=== PATIENT | male | born 1970 | race Caucasian/White ===

== ENCOUNTER 2023-05-21 10:18 | Observation (INO) | payer OTHER ==
--- OUTSIDE RECORDS SUMMARY | 2023-05-21 10:21 | XMS REPORT | Continuity of Care Document ---
:1970 Author Organization [facility] t Address [address] [facility]. [address] [place] [address] Care Team Providers Name Role Phone Unavailable Unavailable Unavailable Problems This patient has no known problems. Allergies, Adverse Reactions, Alerts This patient has no known allergies or adverse reactions. Medications This patient has no known medications. Procedures This patient has no known procedures. Encounters Start End Encounter Admission Attending Care Care Encounter Source Date/Time Date/Time Type Type Clinicians Facility Department ID 2023-02-24 2023-02-24 Outpatient [facility] [id number] 14:22:23 14:22:23 [id number] F Vickey 2023-01-29 2023-01-29 Outpatient [facility] [id number] 13:37:17 13:37:17 [id number] F Vickey 2023-01-27 2023-01-27 Outpatient [facility] [id number] [place] 13:33:18 13:33:18 [id number] F Vickey Results This patient has no known results.
[2023-05-21 11:51] LABS: Absolute Lymphocytes (CBC) 0.6 K/uL (0.7-4.9); Hematocrit 38.5 % (39.6-49.0); Lymphocytes % 7.1 % (15.3-44.8); MCV 94.8 fL (80-100); MPV 7.9 fL (7.6-11.3); RBC Red Blood Cell Count 4.06 M/uL (4.33-5.43)
[2023-05-21] MEDS ORDERED: Ringers Lactate 1,000 ML IV ONE (11:51)
[2023-05-21] MEDS ORDERED: FOLIC ACID 1 MG, THIAMINE HCL 100 MG, MULTIVITAMINS INJ 10 ML in NA CHLORIDE 0.9% 1,000 ML IV ONE (12:00)
[2023-05-21 12:14] LABS: Albumin 4.8 g/dL (3.4-5.0); Potassium 3.2 mEq/L (3.5-5.1); Protein, Total 8.6 g/dL (6.4-8.2)
--- NOTE | 2023-05-21 13:11 | EDPHYS ---
Physician Documentation [facility] Name: Darrin Wright Age: 53 yrs Sex: Male : 1970 Arrival Date: 05/21/2023 Time: 10:18 Bed 12 Private MD: ED Physician Rafael Dhillon HPI: 05/21 14:29 This 53 yrs old Male presents to ER via Ambulatory with complaints of Dizziness, kdr Headache. 14:29 Patient presents with intermittent syncope, weakness and generally not feeling well. kdr This is been ongoing but seemingly worsening over the last several months. Patient states that he is very lightheaded and dizzy when he stands up. Patient states that he has been under a lot of stress and has been drinking 8 - 16 ounce beers in the evenings. Last night he only had 2 beers. 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 Last few months though he has been unable to continue that regimen. Patient is nonacute and nontoxic in the initial presentation. Onset: The symptoms/episode began/occurred gradually, 2 month(s) ago. Severity of symptoms: At their worst the symptoms were moderate incapacitating in the emergency department the symptoms have improved mildly. The patient has experienced similar episodes in the past, chronically. The patient has not recently seen a physician. Historical: - Allergies: 10:31 PENICILLINS; ss - PMHx: 10:31 Hypertensive disorder; Hypercholesterolemia; ss - PSHx: 10:31 None; ss - Immunization history:: Client reports receiving the 2nd dose of the Covid vaccine. - Social history:: Smoking status: Patient reports use of chewing tobacco. ROS: 14:29 Constitutional: Negative for fever, chills, and weight loss, Eyes: Negative for injury, kdr pain, redness, and discharge, Neck: Negative for injury, pain, and swelling, Cardiovascular: Negative for chest pain, palpitations, and edema, Respiratory: Negative for shortness of breath, cough, wheezing, and pleuritic chest pain, Abdomen/GI: Negative for abdominal pain, nausea, vomiting, diarrhea, and constipation, Back: Negative for injury and pain, MS/Extremity: Negative for injury and deformity, Skin: Negative for injury, rash, and discoloration, Neuro: Negative for headache, weakness, numbness, tingling, and seizure activity. Psych: Negative for depression, anxiety, suicide ideation, homicidal ideation, and hallucinations, Allergy/Immunology: Negative for hives, rash, and allergies, Endocrine: Negative for neck swelling, polydipsia, polyuria, polyphagia, and marked weight changes, Hematologic/Lymphatic: Negative for swollen nodes, abnormal bleeding, and unusual bruising. 14:29 Back: Positive for The patient states that he has pain in his upper back and low neck. Exam: 14:29 Constitutional: This is a well developed, well nourished patient who is awake, alert, kdr and in no acute distress. Head/Face: Normocephalic, atraumatic. Eyes: Pupils equal round and reactive to light, extra-ocular motions intact. Lids and lashes normal. Conjunctiva and sclera are non-icteric and not injected. Cornea within normal limits. Periorbital areas with no swelling, redness, or edema. Neck: Trachea midline, no thyromegaly or masses palpated, and no cervical lymphadenopathy. Supple, full range of motion without nuchal rigidity, or vertebral point tenderness. No Meningismus. Chest/axilla: Normal chest wall appearance and motion. Nontender with no deformity. No lesions are appreciated. Cardiovascular: Regular rate and rhythm with a normal S1 and S2. No gallops, murmurs, or rubs. Normal PMI, no JVD. No pulse deficits. Respiratory: Lungs have equal breath sounds bilaterally, clear to auscultation and percussion. No rales, rhonchi or wheezes noted. No increased work of breathing, no retractions or nasal flaring. Abdomen/GI: Soft, non-tender, with normal bowel sounds. No distension or tympany. No guarding or rebound. No evidence of tenderness throughout. Back: No spinal tenderness. No costovertebral tenderness. Full range of motion. Skin: Warm, dry with normal turgor. Normal color with no rashes, no lesions, and no evidence of cellulitis. MS/ Extremity: Pulses equal, no cyanosis. Neurovascular intact. Full, normal range of motion. Neuro: Awake and alert, GCS 15, oriented to person, place, time, and situation. Cranial nerves II-XII grossly intact. Motor strength 5/5 in all extremities. Sensory grossly intact. Cerebellar exam normal. Normal gait. Psych: Awake, alert, with orientation to person, place and time. Behavior, mood, and affect are within normal limits. Vital Signs: 10:31 BP 100 / 70; Resp 17; Temp 97.9(O); Weight 72.57 kg; Height 5 ft. 11 in. ; Pain 3/10; ss 10:35 Pulse 93; Pulse Ox 100% on R/A; ss 11:51 BP 92 / 69 Supine; Pulse 79; ss 11:51 BP 88 / 55 Sitting; Pulse 88; ss 11:51 BP 73 / 54 Standing; Pulse 102; ss 12:36 BP 101 / 72; Pulse 81; Resp 18; Pulse Ox 97% on R/A; mb9 14:32 BP 134 / 80 Supine; Pulse 92; ss 14:32 BP 92 / 58 Sitting; Pulse 110; ss 14:32 BP 84 / 54; Pulse 109; ss 10:31 Body Mass Index 22.32 (72.57 kg, 180.34 cm) ss 10:31 Pain Scale: Adult ss MDM: 13:10 Patient medically screened. kdr 14:29 Data reviewed: vital signs, nurses notes, lab test result(s). kdr 05/21 11:06 Order name: CMP; Complete Time: 12:49 kdr 05/21 11:06 Order name: CBC with Diff; Complete Time: 12:12 kdr 05/21 11:06 Order name: ETOH Level; Complete Time: 12:49 kdr 05/21 13:51 Order name: CBC with Automated Diff EDOH 05/21 13:51 Order name: Comprehensive Metabolic Panel EDOH 05/21 13:52 Order name: Urinalysis w/ reflexes EDOH 05/21 13:52 Order name: Blood Culture EDOH 05/21 13:58 Order name: Magnesium EDOH 05/21 13:53 Order name: Chest Single View EDOH 05/21 13:53 Order name: Chest Single View EDOH 05/21 13:53 Order name: Chest Single View EDOH 05/21 13:59 Order name: Abdomen Exam Complete EDOH 05/21 13:51 Order name: Regular EDOH 05/21 11:06 Order name: Orthostatic Blood Pressure: Pre and post fluids - be carful standing - SBP kdr 88; Complete Time: 11:50 Administered Medications: 11:50 Drug: Lactated Ringers Solution IV 1000 ml {Note: Administered bolus at this time. .} ss Route: IV; Rate: 150 ml/hr; Site: left antecubital; 12:40 Drug: Banana Bag - (NS 0.9% IV 1000 ml, foLIC Acid IVPB 1 mg, Thiamine IV 100 mg, mb9 Multivitamin IV 1 amp) Route: IV; Rate: calculated rate; Site: left antecubital; 13:48 Drug: Potassium PO Effervescent Tablet 50 mEq Route: PO; mb9 15:15 Follow up: Response: No adverse reaction ss 14:25 Drug: Potassium Chloride IV 20 mEq Route: IV; Rate: calculated rate; Site: left ss antecubital; 15:14 Follow up: IV Status: Infusion continued upon admission ss Disposition Summary: 05/21/23 13:10 Hospitalization Ordered Hospitalization Status: Inpatient Admission kdr Provider: Partick Madden Location: Telemetry/[facility] (Inpatient) kdr Condition: Fair kdr Problem: new kdr Symptoms: have improved kdr Bed/Room Type: Standard kdr Room Assignment: 202(05/21/23 14:17) eb Diagnosis - Acute kidney failure, unspecified kdr - Dehydration kdr Forms: - Medication Reconciliation Form kdr - SBAR form kdr Signatures: Dispatcher [employer] EDMS Rafael Dhillon MD MD kdr Tammy Gavin RN RN Jena Araya Mary Beth, RN RN mb9 Corrections: (The following items were deleted from the chart) 14:17 13:10 kdr eb
--- NOTE | 2023-05-21 13:11 | ER ---
Nurse's Notes [facility] Name: Darrin Wright Age: 53 yrs Sex: Male : 1970 Arrival Date: 05/21/2023 Time: 10:18 Bed 12 Private MD: Diagnosis: Acute kidney failure, unspecified;Dehydration Presentation: 05/21 10:30 Chief complaint: Patient states: Dizziness that is worse when standing that began 3 ss days ago. 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 Coronavirus screen: Client denies travel out of the [place] in the last 14 days. Ebola Screen: Patient denies exposure to infectious person. Patient denies travel to an Ebola-affected area in the 21 days before illness onset. Initial Sepsis Screen: Does the patient meet any 2 criteria? No. Patient's initial sepsis screen is negative. Does the patient have a suspected source of infection? No. Patient's initial sepsis screen is negative. Risk Assessment: Do you want to hurt yourself or someone else? Patient reports no desire to harm self or others. Onset of symptoms was May 18, 2023. 10:30 Method Of Arrival: Ambulatory ss 10:30 Acuity: DAMASO 3 ss Historical: - Allergies: 10:31 PENICILLINS; ss - PMHx: 10:31 Hypertensive disorder; Hypercholesterolemia; ss - PSHx: 10:31 None; ss - Immunization history:: Client reports receiving the 2nd dose of the Covid vaccine. - Social history:: Smoking status: Patient reports use of chewing tobacco. Screenin:51 [facility] ED Fall Risk Assessment (Adult) History of falling in the last 3 months, ss including since admission No falls in past 3 months (0 pts). Abuse screen: Denies threats or abuse. Denies injuries from another. Nutritional screening: No deficits noted. Tuberculosis screening: Never had TB. Assessment: 14:00 Reassessment: Patient appears in no apparent distress at this time. Denies dizziness/ ss KAY at this time. 14:31 Reassessment: attempted to call report. Nurse unavailable at this time and will call ss back. Vital Signs: 10:31 BP 100 / 70; Resp 17; Temp 97.9(O); Weight 72.57 kg; Height 5 ft. 11 in. ; Pain 3/10; ss 10:35 Pulse 93; Pulse Ox 100% on R/A; ss 11:51 BP 92 / 69 Supine; Pulse 79; ss 11:51 BP 88 / 55 Sitting; Pulse 88; ss 11:51 BP 73 / 54 Standing; Pulse 102; ss 12:36 BP 101 / 72; Pulse 81; Resp 18; Pulse Ox 97% on R/A; mb9 14:32 BP 134 / 80 Supine; Pulse 92; ss 14:32 BP 92 / 58 Sitting; Pulse 110; ss 14:32 BP 84 / 54; Pulse 109; ss 10:31 Body Mass Index 22.32 (72.57 kg, 180.34 cm) ss 10:31 Pain Scale: Adult ss ED Course: 10:22 Patient arrived in ED. mg5 10:28 Rafael Dhillon MD is Attending Physician. kdr 10:31 Triage completed. ss 10:31 Arm band placed on left wrist. ss 11:31 Tammy Gavin, RN is Primary Nurse. ss 11:32 Inserted saline lock: 22 gauge in left antecubital area, using aseptic technique. Blood ss collected. 11:51 Patient has correct armband on for positive identification. ss 13:04 Patrick Madden MD is Hospitalizing Provider. kdr 14:34 No provider procedures requiring assistance completed. Patient admitted, IV remains in ss place. Administered Medications: 11:50 Drug: Lactated Ringers Solution IV 1000 ml {Note: Administered bolus at this time. .} Route: IV; Rate: 150 ml/hr; Site: left antecubital; 12:40 Drug: Banana Bag - (NS 0.9% IV 1000 ml, foLIC Acid IVPB 1 mg, Thiamine IV 100 mg, mb9 Multivitamin IV 1 amp) Route: IV; Rate: calculated rate; Site: left antecubital; 13:48 Drug: Potassium PO Effervescent Tablet 50 mEq Route: PO; mb9 15:15 Follow up: Response: No adverse reaction ss 14:25 Drug: Potassium Chloride IV 20 mEq Route: IV; Rate: calculated rate; Site: left ss antecubital; 15:14 Follow up: IV Status: Infusion continued upon admission ss Medication: 11:51 VIS not applicable for this client. ss Outcome: 13:10 Decision to Hospitalize by Provider. kdr 14:34 Condition: good ss 14:34 Instructed on the need for admit. 15:15 Discharged to home ambulatory. ss 15:15 Patient left the ED. ss Signatures: Rafael Dhillon MD MD [facility] Tammy Gavin RN RN ss Genet Espinosa RN RN Lindsay Grossman mg5 Corrections: (The following items were deleted from the chart) 11:33 11:32 Inserted saline lock: 22 gauge in right antecubital area, using aseptic ss technique. Blood collected. ss
[2023-05-21] MEDS ORDERED: LORAZEPAM 1 MG TABLET PO PRN (13:45)
[2023-05-21] MEDS ORDERED: FLUMAZENIL 0.1 MG/ML (5 mL VIAL) IV PRN (13:45)
[2023-05-21] MEDS ORDERED: KCL 20 MEQ/100 mL IVPB 100 ML IV ONE (13:51)
[2023-05-21] MEDS ORDERED: POTASSIUM 25 MEQ EFFERV TAB ONE (13:51)
--- NOTE | 2023-05-21 13:57 | P.HP ---
Certification for Inpatient Patient admitted to: Observation Patient will require the following post-hospital care: None Practitioner: I am a practitioner with admitting privileges, knowledge of patient current condition, hospital course, and medical plan of care. 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 denies any fever chills or cough or phlegm he does not smoke clearly had orthostatic changes with mild renal failure was admitted to the hospital/patient had a weeks history of diarrhea vomiting he does take lisinopril with hydrochlorothiazide aspirin and lipid medication Allergies Penicillins Allergy (Verified 05/21/23 11:36) UNK Home Medications: Aspirin [Vazalore] 81 mg PO DAILY 05/21/23 Atorvastatin Calcium 40 mg PO BEDTIME 05/21/23 Omeprazole Magnesium [Prilosec Otc] 1 tab PO DAILY 05/22/23 - Past Medical/Surgical History -: Hypertension Past Surgical History: Reviewed- Non-Contributory - Social History Smoking Status: Never smoker Review of Systems 10-point ROS is otherwise unremarkable General: Weakness Physical Examination - Vital Signs Temperature: 97.9 F Blood Pressure: 100/70 Pulse: 80 Respirations: 17 Pulse Ox (%): 95 - Physical Exam General: Alert, In no apparent distress, Oriented x3 Neck: Supple Respiratory: Clear to auscultation bilaterally Cardiovascular: No edema, Regular rate/rhythm, Normal S1 S2 Gastrointestinal: Normal bowel sounds, Hypoactive, Soft and benign Musculoskeletal: No clubbing, No swelling - Studies Laboratory Data (last 24 hrs) 05/21/23 05/21/23 11:30 11:30 WBC 8.80 Hgb 13.0 L Hct 38.5 L Plt Count 189 Sodium 127 L Potassium 3.2 L BUN 33 H Creatinine 2.60 H Glucose 109 H Total Bilirubin 1.0 AST 65 H ALT 84 H Alkaline Phosphatase 61 Assessment and Plan - Problems (Diagnosis) (1) Orthostatic hypotension Current Visit: Yes Status: Acute Plan: Patient is 53 years of age admitted with dizziness for the past few days he has orthostatic hypotension this was all preceded by some diarrhea and vomiting in the past week. In addition patient does take lisinopril with hydrochlorot hiazide for his hypertension in addition to aspirin and medication for hypercholesterolemia. He uses the [facility] denies any fever and chills have ordered chest x-ray urine analysis urine tox screen start on IV fluids thiamine and refuses gabapentin DVT medications as needed also has abnormal liver function test probably underlying alcoholic hepatitis (2) Renal failure Current Visit: Yes Status: Acute Plan: Most likely acute from volume depletion we will check urinalysis ultrasound of the kidneys Qualifiers: Renal failure chronicity: acute - Advance Directives Does patient have a Living Will: No Does patient have a Durable POA for Healthcare: No
[2023-05-21] MEDS ORDERED: VANCOMYCIN 1 GM in NA CHLORIDE 0.9% 250 ML IVPB SCH (14:00)
[2023-05-21] MEDS ORDERED: VANCOMYCIN 1.75 GM in NA CHLORIDE 0.9% 500 ML IVPB ONE (15:00)
--- NOTE | 2023-05-21 15:14 | RAD REPORT ---
EXAM DESCRIPTION: Jose Single View05/21/2023 2:32 pm CLINICAL HISTORY: Hypotension COMPARISON: none FINDINGS: The lungs appear clear of acute infiltrate. The heart is normal size IMPRESSION: No acute abnormalities displayed
[2023-05-21] MEDS: POTASSIUM 25 MEQ EFFERV TAB PO SCH ×2 (15:33→20:11)
[2023-05-21] MEDS: LORAZEPAM 1 MG TABLET PO SCH ×3 (15:34→20:12)
[2023-05-21] MEDS ORDERED: NA CHLORIDE 0.9% 1,000 ML ONE (15:47)
[2023-05-21 15:49] VITALS: BMI 22.3
[2023-05-21 16:04] LABS: Absolute Lymphocytes (CBC) 0.6 K/uL (0.7-4.9); Hematocrit 36.2 % (39.6-49.0); Lymphocytes % 8.2 % (15.3-44.8); MCV 94.6 fL (80-100); MPV 7.9 fL (7.6-11.3); RBC Red Blood Cell Count 3.82 M/uL (4.33-5.43)
[2023-05-21] MEDS: CEFTRIAXONE 1,000 MG in NA CHLORIDE 0.9% 50 ML IVPB SCH (16:22)
[2023-05-21 16:23] LABS: Albumin 4.2 g/dL (3.4-5.0); Potassium 3.8 mEq/L (3.5-5.1); Protein, Total 7.7 g/dL (6.4-8.2)
[2023-05-21] MEDS: THIAMINE 200 MG/2 ML INJ IVP SCH ×2 (16:27→20:12)
[2023-05-21 19:38] LABS: Urine Bilirubin NEGATIVE (Negative); Urine Blood Negative (Negative); Urine Clarity Clear (Clear); Urine Color Light-Yellow (Yellow); Urine Glucose 1+ (Negative); Urine Protein NEGATIVE (Negative); Urine Urobilinogen Normal (Normal)
[2023-05-22] MEDS: LORAZEPAM 1 MG TABLET PO SCH ×3 (02:00→10:00)
--- NOTE | 2023-05-22 07:44 | RAD REPORT ---
EXAM DESCRIPTION: US - Abdomen Exam Complete - 05/22/2023 6:35 am CLINICAL HISTORY: Abdominal pain. Normal liver function tests normal kidney function COMPARISON: <Comparisons> FINDINGS: Diffuse fatty liver is present. No focal liver lesions or intrahepatic biliary dilatation is seen. The gallbladder demonstrates no gallstones, pericholecystic fluid or gallbladder wall thickening. Co mmon bile duct is normal in caliber measuring 4 mm. Both kidneys are normal in size, shape and echotexture. No hydronephrosis, focal lesion of concern or perinephric fluid. The spleen is normal in size measuring 10 cm. The pancreas and aorta are obscured by bowel gas. The visualized aspects of the IVC are grossly normal. IMPRESSION: Diffuse fatty liver.
[2023-05-22] MEDS: CEFTRIAXONE 1,000 MG in NA CHLORIDE 0.9% 50 ML IVPB SCH (09:00)
[2023-05-22] MEDS ORDERED: FOLIC ACID 1 MG, MULTIVITAMINS INJ 10 ML, THIAMINE HCL 100 MG in NA CHLORIDE 0.9% 1,000 ML IV SCH (09:00)
--- NOTE | 2023-05-22 09:24 | RAD REPORT ---
EXAM DESCRIPTION: RAD - Chest Single View - 05/22/2023 8:43 am CLINICAL HISTORY: Hypotension Chest pain. COMPARISON: Chest Single View dated 05/21/2023 FINDINGS: Portable technique limits examination quality. The lungs are grossly clear. The heart is normal in size. No displaced fractures. IMPRESSION: No acute intrathoracic process suspected.
[2023-05-22] MEDS: POTASSIUM 25 MEQ EFFERV TAB PO SCH (10:32)
[2023-05-22] MEDS: THIAMINE 200 MG/2 ML INJ IVP SCH (10:57)
--- NOTE | 2023-05-22 11:24 | P.DS ---
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 denies any fever chills or cough or phlegm he does not smoke clearly had orthostatic changes with mild renal failure was admitted to the hospital/patient had a weeks history of diarrhea vomiting he does take lisinopril with hydrochlorothiazide aspirin and lipid medication Hospital Course: Patient is 53 years of age admitted with dizziness also had acute renal insufficiency presumed volume depletion he had apparently had a history of diarrhea and vomiting a week ago he also drink excessively patient was admitted started on IV fluids his kidney function improved at the time of discharge he was alert oriented responsive ambulating no orthostatic changes renal function was normal chest x-ray clear shows COPD changes patient is an active smoker has no evidence of sepsis blood cultures are still pending oxygenation satisfactory resume home medication hold antihypertensive medications for now Vital Signs/Physical Exam: Temp Pulse Resp BP Pulse Ox 97.7 F 93 H 16 112/61 98 05/22/23 08:00 05/22/23 08:00 05/22/23 08:00 05/22/23 08:00 05/22/23 08:00 Laboratory Data at Discharge: WBC 7.70 thou/uL (4.3-10.9) 05/21/23 13:51 Hgb 12.2 g/dL (13.6-17.9) L 05/21/23 13:51 Hct 36.2 % (39.6-49.0) L 05/21/23 13:51 Plt Count 190 thou/uL (152-406) 05/21/23 13:51 Sodium 135 mEq/L (136-145) L D 05/22/23 10:45 Potassium 4.0 mEq/L (3.5-5.1) 05/22/23 10:45 BUN 24 mg/dL (7-18) H 05/22/23 10:45 Creatinine 1.16 mg/dL (0.70-1.30) 05/22/23 10:45 Glucose 115 mg/dL (74-106) H 05/22/23 10:45 Magnesium 2.3 mg/dL (1.6-2.4) 05/21/23 13:51 Total Bilirubin 1.0 mg/dL (0.2-1.0) 05/21/23 13:51 AST 58 U/L (15-37) H 05/21/23 13:51 ALT 75 U/L (16-61) H 05/21/23 13:51 Alkaline Phosphatase 53 U/L (45-117) 05/21/23 13:51 Home Medications: Aspirin [Vazalore] 81 mg PO DAILY 05/21/23 Atorvastatin Calcium 40 mg PO BEDTIME 05/21/23 Lisinopril/Hydrochlorothiazide [Lisinopril-Hctz 20-12.5 mg Tab] 1 each PO DAILY 05/21/23 Omeprazole Magnesium [Prilosec Otc] 1 tab PO DAILY 05/22/23 Physician Discharge Instructions: Follow-up with primary care doctor patient to consume fluids Activity: Ad meagan Followup: NONE,NONE [Primary Care Provider] -
[2023-05-22 12:11] VITALS: BP 134/77; TEMP 98.7
[2023-05-22 12:20] VITALS: O2SAT 99
[2023-05-23] MEDS ORDERED: VANCOMYCIN 1.25 GM in NA CHLORIDE 0.9% 250 ML IVPB SCH (03:00)
[2023-05-23] MEDS ORDERED: LORAZEPAM 1 MG TABLET PO SCH (14:00)
== END 2023-05-22 13:04 | disposition home or self-care (01) ==
LOC: ER 10:18 → ERHOLD 13:46 → 2ND 14:56
PROVIDERS: ADMIT Internal Medicine Sleep Medicine; ATTEND Internal Medicine Sleep Medicine
DX: I95.1 Orthostatic hypotension (principal); N17.9 Acute kidney failure, unspecified; F17.210 Nicotine dependence, cigarettes, uncomplicated; E78.00 Pure hypercholesterolemia, unspecified; Z88.0 Allergy status to penicillin; Z79.82 Long term (current) use of aspirin
CPT/HCPCS: 96365; 87040; 85025 ×2; 80048; 36415 ×2; 83735; 82947 ×4; 81003; 80053 ×2; 71045 ×2; 76700; 96375; 99284; 82077; J3411 ×4; J3480; J7120; J7040; J7030 ×3; J0696